=== PATIENT | male | born 1990 ===

== ENCOUNTER 2020-07-05 14:27 | Outpatient (REF) | payer OTHER, SELFPAY | END 2020-07-05 14:28 | disposition home or self-care (01) | LOC: HO.LNP 14:27 | PROVIDERS: Visit Provider Nurse Practitioner Family | DX: Z20.828 Contact with and (suspected) exposure to other viral communicable diseases (principal); J02.9 Acute pharyngitis, unspecified | CPT/HCPCS: U0003 ==

== ENCOUNTER 2021-06-08 14:35 | Emergency (ER) | payer OTHER, SELFPAY ==
[2021-06-08 14:39] VITALS: BP 122/81; PULSE 80; RESP 18; TEMP 36.1; O2SAT 98; BMI 25.8
--- NOTE | 2021-06-08 16:09 | ED.ALLEREA ---
HPI - Allergic Reaction General Chief complaint: Allergic Reaction Stated complaint: rash Time Seen by Provider: 06/08/21 16:09 Source: patient Mode of arrival: ambulatory Limitations: no limitations History of Present Illness MD complaint: allergic reaction and hives Onset (ago): day(s) (several) Exposure: medication (tessalon) Symptoms: rash and itching Severity: mild Treatment prior to arrival: other (atarax) Previous Allergic Reaction History: none Related Data Previous Rx's Medication Instructions Recorded azithromycin 500 mg tablet See Rx Instructions .ROUTE 06/08/21 .COMPLEX #6 tab prednisone 20 mg tablet 60 mg PO DAILY 4 Days #12 tab 06/08/21 Allergies Allergy/AdvReac Type Severity Reaction Status Date / Time morphine [MORPHINE] AdvReac Intermediate HALLUCINATI Unverified 07/05/20 10:46 ON Review of Systems Review of Systems: Constitutional : No Fever, No Chills ENT/Mouth : no oral swelling, No Hoarseness, No Swallowing Difficulty Eyes: No Eye Pain, No Swelling, No Redness Cardiovascular : No Chest Pain, No SOB Respiratory : No Cough, No Sputum, No Wheezing, No Smoke Exposure, No Dyspnea Gastrointestinal : No Nausea, No Vomiting, No Diarrhea, No abdominal Pain Genitourinary : No Dysuria, No Urinary Frequency, No Hematuria Musculoskeletal : No joint pain, No Myalgias, No Joint Swelling Skin : No Skin Lesions, positive rash Neuro : No Weakness, No Numbness, No Headache PMFSH Past Medical History Attestation statement: The following information was validated with the patient. Medical History Sore throat Social History Social History (Updated 06/08/21 @ 16:42 by Iqra Caraballo DO) Patient Tobacco Use Status: Never used Tobacco Advance Directives: No Advance Directives Information Provided: Yes Physical Exam Vital Signs: Vital Signs: Last Vital Signs Temp 97 F 06/08/21 14:39 Pulse 80 06/08/21 14:39 Resp 18 06/08/21 14:39 BP 122/81 06/08/21 14:39 Pulse Ox 98 06/08/21 14:39 Body Mass Index 25.8 Appearance: Alert. Oriented X3. No acute distress. Eyes: Pupils equal, round and reactive to light. ENT: Pharynx normal. Neck: Normal inspection. Neck supple. CVS: Pulses normal. Respiratory: No respiratory distress. Abdomen: Soft and nontender. Skin: Skin warm and dry. Normal skin color. diffuse raised pink plaques that are pruritic and excoriated Extremities: No lower extremity edema. No calf ttp Neuro: Oriented X 3. No motor deficit. No sensory deficit. Course Course Course Narrative: will place on azithromycin as well - cannot tolerate amoxicillin, this could be a scarlatinoform rash in nature given his sore throat last week MDM - Allergic Reaction MDM Narrative Medical decision making narrative: 31 yo male with no sig PMH here with c/o hives since taking tessalon perles has tried taking atarax with no relief, no other family members with this, it appears allergic in nature - will start on steroid burst and refer to PCP will place on azithromycin as well - cannot tolerate amoxicillin, this could be a scarlatinoform rash in nature given his sore throat last week Discharge Plan Discharge Clinical Impression: Urticaria Patient Disposition: Home, Self-Care Instructions: Urticaria (ED) Additional Instructions: return to ED for any worsening symptoms or concerns Prescriptions: New prednisone 20 mg tablet 60 mg PO DAILY 4 Days Qty: 12 RF: 0 azithromycin 500 mg tablet See Rx Instructions .ROUTE .COMPLEX Qty: 6 RF: 0 Referrals: Monica Stark DO [Primary Care Provider] - 2 days (if not better) Discharge Date/Time: 06/08/21 16:40
[2021-06-08] MEDS: predniSONE 20 MG TABLET 60 MG PO (16:32)
== END 2021-06-08 16:40 | disposition home or self-care (01) ==
LOC: HO.ED 16:35
PROVIDERS: Emergency Provider Emergency Medicine; PCP Internal Medicine
DX: L50.9 Urticaria, unspecified (principal)
CPT/HCPCS: 99283

== ENCOUNTER 2023-08-23 12:50 | Emergency (ER) | payer BC, SELFPAY ==
--- NOTE | ~2023-08-23 | XR_ITS ---
EXAMINATION: XR CHEST CLINICAL INFORMATION: Chest pain COMPARISON: None available. TECHNIQUE: 2 views of the chest were obtained. FINDINGS: No significant abnormality is noted involving the heart, lungs, mediastinum, bony thorax or soft tissues. XR/XR chest 2V IMPRESSION: No acute disease.
--- NOTE | 2023-08-23 12:52 | ECG_ITS ---
Test Reason : chest pain Blood Pressure : / mmHG Vent. Rate : 069 BPM Atrial Rate : 069 BPM P-R Int : 168 ms QRS Dur : 088 ms QT Int : 360 ms P-R-T Axes : 042 -04 020 degrees QTc Int : 385 ms Normal sinus rhythm Normal ECG No previous ECGs available Referred By: Nadia Odom Electronically Signed By:ANIBAL ESCALANTE
[2023-08-23 14:14] VITALS: BP 151/92; RESP 16; TEMP 36.4; O2SAT 99; BMI 26.4
--- NOTE | 2023-08-23 14:14 | ED_ITS ---
HPI - General Adult General Chief complaint: Chest Pain Stated complaint: Chest and Back Pain Sent By PCP Related Data Previous Rx's Medication Instructions Recorded azithromycin 500 mg tablet See Rx Instructions PO .COMPLEX #6 06/08/21 tabs prednisone 20 mg tablet 60 mg (3 x 20 mg) PO DAILY 4 days 06/08/21 #12 tabs Allergies Allergy/AdvReac Type Severity Reaction Status Date / Time morphine [MORPHINE] AdvReac Intermediate HALLUCINATI Verified 08/23/23 14:14 ON [facility] Past Medical History Medical History Sore throat Social History Social History (Updated 06/08/21 @ 16:42 by Lesly aCraballo DO) Patient Tobacco Use Status: Never used Tobacco Advance Directives: No Advance Directives Information Provided: No Physical Exam ED Vital Signs: BMI result Body Mass Index 26.4 Course Course Course Narrative: This is a rapid medical exam: Additional HPI, ROS, PE not included below will be deferred to primary provider. Patient is a 33-year-old male referred to the ED by PCP for chest and back pain. Has been present for 2 weeks. States pain radiates from chest through to back, worse with deep inspiration. Reports nonproductive cough. Current pain is 6/10. Plan: labs, CXR, EKG Medical Decision Making Lab Data 08/23/23 15:12 08/23/23 15:12 Labs: Lab Results 08/23/23 08/23/23 Range/Units 15:11 15:12 WBC 7.2 (4.8-10.8) X10*3/uL RBC 5.55 (4.60-5.80) X10*6/uL Hgb 16.4 (14.0-18.0) g/dl Hct 47.2 (42.0-52.0) % MCV 85.0 (80.0-98.0) fL MCH 29.5 (27.0-33.0) pg MCHC 34.7 (31.0-36.0) g/dl RDW 11.9 (11.0-16.0) % Plt Count 291 (160-400) X10*3/uL MPV 10.0 (9.4-12.4) fL Immature Gran % (Auto) 0.3 (0.0-0.4) % Neut % (Auto) 57.9 (45-73) % Lymph % (Auto) 29.9 (20-40) % Starke % (Auto) 6.0 (2-11) % Eos % (Auto) 5.3 H (0-4) % Baso % (Auto) 0.6 (0-2) % Lymph # (Auto) 2.1 (1.2-4.9) X10*3/uL Starke # (Auto) 0.4 (0.1-1.2) X10*3/uL Eos # (Auto) 0.4 (0.0-0.4) X10*3/uL Baso # (Auto) 0.0 (0.0-0.2) X10*3/uL Abs Immat Gran (auto) 0.02 (0.00-0.03) X10*3/uL Absolute Neuts (auto) 4.2 (2.0-8.3) x10*3/uL Absolute Nucleated RBC 0.000 (0.0-0.012) X10*3/uL Nucleated RBC % (auto) 0.0 (0.0-0.2) /100WBC Sodium 140 (135-145) mmol/L Potassium 4.2 (3.3-5.1) mmol/L Chloride 104 (96-108) mmol/L Carbon Dioxide 20 L (22-29) mmol/L Anion Gap 20 (12-20) BUN 18 H (9-16) mg/dL Creatinine 0.93 (0.5-1.4) mg/dL Estim Creat Clear Calc 106.6 Estimated GFR > 60 Random Glucose 217 H (60-115) mg/dL Calcium 9.7 (8.4-10.2) mg/dL Troponin I High Sens < 2.7 (<3.5-35.0) ng/L Discharge Plan Discharge Clinical Impression: Chest pain Patient Disposition: Left W/O Completing Treatment Prescriptions: No Action prednisone 20 mg tablet 60 mg PO DAILY 4 Days Qty: 12 0RF azithromycin 500 mg tablet See Rx Instructions .ROUTE .COMPLEX Qty: 6 0RF Rx Instructions: take 500 mg today (day 1), then 250 mg for 4 days (days 2-5) Interventions: ED Discharge Assessment Last Done: 08/23/23 17:09 Discharge Date/Time: 08/23/23 17:10
[2023-08-23 15:16] LABS: MANUAL DIFF FLAG NO
[2023-08-23 15:17] LABS: Basophils Percent Auto 0.6 % (0-2); Eosinophils Absolute Auto 0.4 X10*3/uL (0.0-0.4); Eosinophils Percent Auto 5.3 % (0-4); Hematocrit 47.2 % (42.0-52.0); Hemoglobin 16.4 g/dl (14.0-18.0); Imm Gran Abs Auto 0.02 X10*3/uL (0.00-0.03); Imm Gran Pct Auto 0.3 % (0.0-0.4); Lymphocytes Absolute Auto 2.1 X10*3/uL (1.2-4.9); Lymphocytes Percent Auto 29.9 % (20-40); Mean Corpuscular HGB Conc 34.7 g/dl (31.0-36.0); Mean Corpuscular Hemoglobin 29.5 pg (27.0-33.0); Monocytes Absolute Auto 0.4 X10*3/uL (0.1-1.2); Neutrophils Absolute Auto 4.2 x10*3/uL (2.0-8.3); Neutrophils Percent Auto 57.9 % (45-73); Platelet Count 291 X10*3/uL (160-400); Red Blood Count 5.55 X10*6/uL (4.60-5.80); Red Cell Distribution Width 11.9 % (11.0-16.0); White Blood Count 7.2 X10*3/uL (4.8-10.8)
[2023-08-23 15:34] LABS: Anion Gap 20 (12-20); Blood Urea Nitrogen 18 mg/dL (9-16); Calcium 9.7 mg/dL (8.4-10.2); Carbon Dioxide 20 mmol/L (22-29); Chloride 104 mmol/L (96-108); Creatinine Clr Calc Pharmacy 106.6; Estimated Glomerular Filt Rate > 60; Glucose Random 217 mg/dL (60-115); Potassium 4.2 mmol/L (3.3-5.1); Sodium 140 mmol/L (135-145)
[2023-08-23 15:40] LABS: Troponin-I High Sensitivity < 2.7 ng/L (<3.5-35.0)
== END 2023-08-23 17:10 | disposition left against medical advice (07) ==
PROVIDERS: Registered Nurse Emergency; Emergency Provider Emergency Medicine
DX: R07.9 Chest pain, unspecified (principal)
CPT/HCPCS: 36415; 71046; 80048; 84484; 85025; 93005; 99283

== ENCOUNTER → 2023-08-23 12:52 | Outpatient (BNV) | payer BC, SELFPAY | PROVIDERS: Visit Provider Internal Medicine | DX: R07.9 Chest pain, unspecified (principal) | CPT/HCPCS: 93010 ==

== ENCOUNTER 2024-07-22 15:44 | Emergency (ER) | payer BC, SELFPAY ==
--- NOTE | ~2024-07-22 | XR_ITS ---
EXAMINATION: XR FOOT, LEFT CLINICAL INFORMATION: Pain of the foot for one year. COMPARISON: Left ankle MRI from 04/09/2021. TECHNIQUE: 3 radiographs of the left foot (AP, lateral, and oblique views). FINDINGS: No fracture or dislocation of the left foot. The joint spaces are well-preserved. No lytic or sclerotic osseous lesions. No focal soft tissue swelling. No radiopaque foreign bodies. XR/XR foot LT min 3V IMPRESSION: No evidence of acute fracture or dislocation of the left foot. Electronically signed by: Mt Cartagena DO 07/22/2024 08:14 PM CONNIE
[2024-07-22 16:48] VITALS: BP 144/72; PULSE 83; RESP 18; TEMP 36.6; O2SAT 97; BMI 26.8
--- NOTE | 2024-07-22 16:48 | ED.LOWEXIN ---
HPI - Extremity Injury (Lower) General Chief Complaint: Extremity Problem Stated Complaint: l foot pain Time Seen by Provider: 07/22/24 19:24 Source: patient, RN notes reviewed and old records reviewed Mode of arrival: ambulatory History of Present Illness ED Provider: Betsy Miguel PA-C HPI Narrative: 34-year-old male with a past medical history of left plantar fasciitis surgery a few years ago at [facility], presenting to the ED complaining of acute on chronic left plantar foot pain x months. States after surgery had pain relief for about 5 or 6 months and then went to [employer] and feels he exacerbated symptoms. Denies known injury, trauma, fall, numbness, tingling, weakness, redness, warmth. Denies taking anything for pain Related Data Previous Rx's ?Medication ?Instructions ?Recorded azithromycin 500 mg tablet See Rx Instructions PO .COMPLEX #6 06/08/21 tabs prednisone 20 mg tablet 60 mg (3 x 20 mg) PO DAILY 4 days 06/08/21 #12 tabs Allergies Allergy/AdvReac Type Severity Reaction Status Date / Time morphine [MORPHINE] AdvReac Intermediate HALLUCINATI Verified 07/22/24 16:50 ON Review of Systems Review of Systems: Yes all other systems are reviewed and are negative Constitutional: Constitutional: Reports as per [facility] Past Medical History Attestation statement: The following information was validated with the patient. Source: old records reviewed Medical History Sore throat Social History Social History Patient Tobacco Use Status: Never used Tobacco Advance Directives: No Advance Directives Information Provided: No Physical Exam Vital Signs: Vital Signs: Last Vital Signs Temp 98.1 F 07/22/24 19:56 Pulse 93 07/22/24 19:56 Resp 16 07/22/24 19:56 BP 150/79 H 07/22/24 19:56 Pulse Ox 96 07/22/24 19:56 O2 Del Method Room Air 07/22/24 19:56 BMI result Body Mass Index 26.8 Const: General: cooperative, healthy appearing and no acute distress Orientation/consciousness: patient oriented x3 Limitations: no limitations HEENT: Head: Yes normal to inspection and Yes atraumatic Ears: hearing grossly normal bilaterally General nose exam: Normal external nose present Face and sinus: Yes normal facial exam Eyes: General: appearance normal, both eyes and all related structures EOM: EOMs intact bilaterally Neck: Neck: Yes normal visual inspection and Yes no meningeal signs Resp: Effort & Inspection: normal respiratory effort and no respiratory distress Auscultation: clear to auscultation bilaterally Cardio: Rate: regular rate Heart sounds: S1 normal heart sound present and S2 normal heart sound present Skin: Rashes: no rashes Wounds: no wounds Neuro: General: patient oriented x3, tone normal and no meningeal signs Cranial nerves: Yes CN's II-XII intact bilaterally Gait exam (Neuro): Normal gait present Extrem: Other: Left foot plantar aspect with old scar. Slight swelling. Mildly tender to palpation. No erythema/warmth/discoloration or ecchymosis. Neurovascularly intact. No LE pitting edema Course Course Course Narrative: This is a Rapid Medical Exam performed in triage by Betsy Miguel PA-C. Full HPI, ROS and PE to be performed by primary ED provider. 34yo M presenting to the ED c/o continued L foot pain s/p plantar fasciitis surgery 1 year ago at [facility]. Denies contacting prior surgeon PE: Ambulating with steady gait Plan: XR XR foot LT min 3V IMPRESSION: No evidence of acute fracture or dislocation of the left foot. Results discussed with patient including worrisome signs and symptoms and strict return precautions, and when to return to the emergency department. They verbalized understanding and feel safe for discharge at this time. Medications Administered Discontinued Medications Generic Name Dose Route Start Last Admin Trade Name Freq PRN Reason Stop Dose Admin Ketorolac Tromethamine 30 mg 07/22/24 19:31 07/22/24 20:15 Ketorolac Tromethamine 30 Mg/Ml Vial IM 07/22/24 19:32 30 mg ONCE ONE Administration Medical Decision Making Medical Decision Making [facility] Narrative: 34-year-old male with a past medical history of left plantar fasciitis surgery a few years ago at [facility], presenting to the ED complaining of acute on chronic left plantar foot pain x months. On exam vital signs stable, NAD, nontoxic appearing, physical exam as noted above. Concern for plantar fasciitis/strain. Lower suspicion for fracture. No evidence of septic joint/arthritis. Plan: X-ray, IM Toradol, re-evaluate, Podiatry/TRELL's f/u Please refer to course for remaining clinical decision making, interpretation of labs/imaging results, and discussions with consultants and/or family members. Differential Diagnosis Differential Diagnoses: The differential diagnosis associated with the presentation includes As above Independent Interpretation I performed an independent interpretation of an: Plain X-Ray Radiology Impression Discussion of test interpretation with radiology: I have reviewed the radiologist's reading. External Record Review External record reviewed: Inpatient record, Office record, Outpatient record, Prior outpatient labs, Prior outpatient radiology, Primary care record and Outside ED record Tests considered The following testing was considered but not selected: As above Prescription Management I considered prescription management with: Pain Medication Social Determinants Patient?s care significantly limited by Social Determinants of Health including: Other Social Determinant of Health Discharge Plan Discharge Clinical Impression: Plantar fasciitis Patient Disposition: Home, Self-Care Instructions: Plantar Fasciitis (ED), Plantar Fasciitis Exercises (ED) Additional Instructions: Please call your surgeon for close follow-up Your x-rays unremarkable Perform foot stretches Naproxen as an anti-inflammatory/pain medication, take with food In addition take Tylenol If area begins to look infected, is red, there is color change, you are unable to walk please return to the ED Prescriptions: No Action prednisone 20 mg tablet 60 mg PO DAILY 4 Days Qty: 12 0RF azithromycin 500 mg tablet See Rx Instructions .ROUTE .COMPLEX Qty: 6 0RF Rx Instructions: take 500 mg today (day 1), then 250 mg for 4 days (days 2-5) Referrals: [facility] [Provider Group] Jann Heart MD [Physician] - Brandyn Heart DPM [Physician] - Print Language: Iranian
[2024-07-22 19:56] VITALS: BP 150/79; PULSE 93; RESP 16; TEMP 36.7; O2SAT 96
[2024-07-22] MEDS: Ketorolac Tromethamine 30 MG/ML VIAL IM (20:15)
[2024-07-22 20:41] VITALS: BP 150/79; PULSE 93; RESP 16; TEMP 36.7; O2SAT 96
== END 2024-07-22 20:42 | disposition home or self-care (01) ==
PROVIDERS: Emergency Provider Emergency Medicine
DX: M72.2 Plantar fascial fibromatosis (principal); M79.672 Pain in left foot
CPT/HCPCS: 73630; 96372; 99283; 99284; J1885